=== PATIENT | male | born 1995 | race Caucasian/White ===

== ENCOUNTER 2018-02-17 20:43 | Emergency (ER) | payer MEDICAID ==
[~2018-02-17] VITALS: Ht 172.7 cm; Wt 73.6 kg
[2018-02-17] MEDS ORDERED: CEPH250 PO (20:51)
[2018-02-17] MEDS ORDERED: TRAM50TA4 PO (20:51)
[2018-02-17] MEDS ORDERED: LIDOCAINE HCL/PF 1% 2 ML VIAL INJ ONE (22:00)
[2018-02-17] MEDS ORDERED: LIDOCAINE HCL 1% 10 ML VIAL INJ ONE (22:00)
[2018-02-17] MEDS ORDERED: MORPHINE SULFATE 4 MG/ML SYRINGE IVP ONE (22:15)
[2018-02-17 23:06] VITALS: BP 124/88
== END 2018-02-17 23:53 | disposition home or self-care (01) ==
LOC: EMS 20:44
DX: S52.502A Unspecified fracture of the lower end of left radius, initial encounter for closed fracture (principal); S52.612A Displaced fracture of left ulna styloid process, initial encounter for closed fracture; V28.5XXA Motorcycle passenger injured in noncollision transport accident in traffic accident, initial encounter; Y93.89 Activity, other specified; Y92.89 Other specified places as the place of occurrence of the external cause; Y99.8 Other external cause status
CPT/HCPCS: 25605; 73080; 73100; 73110; 99284; J2270; J3490

== ENCOUNTER 2025-08-01 13:55 | Emergency (ER) | payer OTHER, MEDICAID ==
[~2025-08-01] VITALS: Ht 167.6 cm; Wt 88.5 kg
[~2025-08-01 13:55] MED LIST: CEPH-556 PO; TRAM50TA5 PO
[2025-08-01 14:02] VITALS: BP 120/75; PULSE 80; RESP 18; TEMP 98.5; O2SAT 100
[2025-08-01] MEDS: CLOTRIMAZOLE 1% 15 GM CREAM TP ONE (15:09)
== END 2025-08-01 15:15 | disposition home or self-care (01) ==
LOC: EMS 13:55
DX: N48.1 Balanitis (principal); L08.9 Local infection of the skin and subcutaneous tissue, unspecified; F17.210 Nicotine dependence, cigarettes, uncomplicated
CPT/HCPCS: 99282; Z7502; Z7610